=== PATIENT | male | born 1995 | race Caucasian/White ===

== ENCOUNTER 2017-10-14 20:33 | Emergency (ER) | payer BC ==
--- NOTE | 2017-10-14 20:37 | PDOC ---
Rapid Medical Evaluation Time Seen by Provider: 10/14/17 20:35 Medical Evaluation: Allergies Allergy/AdvReac Type Severity Reaction Status Date / Time No Known Allergies Allergy Verified 07/18/16 14:12 10/14/17 20:36 I have performed a brief in person evaluation of this patient. The patient presents with chief complaint of : abscess to right forearm Pertinent PE findings: swelling, redness to right inner forearm I have ordered the following: none The patient will proceed to the ER for further evaluation.
[2017-10-14 20:39] VITALS: BP 137/87; PULSE 79; TEMP 98; BMI 20.7
[2017-10-14] MEDS ORDERED: CLINDAMYCIN 600MG PREMIX IVPB 600 MG/50 ML BAG IVPB ONE ×2 (20:53→21:01)
--- NOTE | 2017-10-14 20:53 | PDOC ---
History of Present Illness - General Chief Complaint: Redness To Affected Area Stated Complaint: ABCESS/WOUND Time Seen by Provider: 10/14/17 20:35 History Source: Patient - History of Present Illness Initial Comments: 10/14/17 20:59 21-year-old male who is right hand dominant presents to the emergency department complaining of an abscess to his right anterior mid forearm. Patient states he was shaving his forearm 4 days ago and noticed that he was shaving against a green. 3 days ago he noticed some redness but did not form like a pimple which still prompted him to squeeze the bump. Patient noticed increased redness/swelling/and tenderness but denies lymphangitis today. Past History - Past Medical History Allergies/Adverse Reactions: Allergies Allergy/AdvReac Type Severity Reaction Status Date / Time No Known Allergies Allergy Verified 10/14/17 20:37 Home Medications: Ambulatory Orders Clindamycin [Cleocin -] 300 mg PO TID #21 capsule 10/14/17 Sulfamethoxazole/Trimethoprim [Bactrim Ds -] 1 tab PO BID #14 tablet 10/14/17 Asthma: Yes (childhood) COPD: No - Surgical History Appendectomy: Yes - Immunization History Immunization Up to Date: Yes - Suicide/Smoking/Psychosocial Hx Smoking History: Current some day smoker Have you smoked in the past 12 months: Yes Number of Cigarettes Smoked Daily: 2 Information on smoking cessation initiated: No Hx Alcohol Use: No Drug/Substance Use Hx: Yes (marijuana) Substance Use Type: Marijuana Review of Systems - Review of Systems Able to Perform ROS?: Yes Comments:: 10/14/17 20:57 CONSTITUTIONAL: Absent: fever, chills, diaphoresis, generalized weakness, malaise, loss of appetite CARDIOVASCULAR: Absent: chest pain, loss of consciousness, palpitations, irregular heart rate, peripheral edema RESPIRATORY: Absent: cough, shortness of breath, dyspnea with exertion, orthopnea, wheezing, stridor, hemoptysis GASTROINTESTINAL: Absent: abdominal pain, abdominal distension, nausea, vomiting, diarrhea, constipation, melena, hematochezia GENITOURINARY: Absent: dysuria, frequency, urgency, hesitancy, hematuria, flank pain, genital pain MUSCULOSKELETAL: Absent: myalgia, arthralgia, joint swelling SKIN: Absent: rash, itching, pallor Right ant mid forearm/ erythematous/ indurated abscess ~2cm Is the patient limited Amharic proficient: No *Physical Exam - Vital Signs Last Vital Signs Temp Pulse Resp BP Pulse Ox 98 F 79 18 137/87 99 10/14/17 20:37 10/14/17 20:37 10/14/17 20:37 10/14/17 20:37 10/14/17 20:37 - Physical Exam Comments: 10/14/17 20:57 GENERAL: Well developed, well nourished. Awake and alert. No acute distress. HEENT: Normocephalic, atraumatic. PERRLA, EOMI. No conjunctival pallor. Sclera are non- icteric. Moist mucous membranes. Oropharynx is clear. NECK: Supple. Full ROM. No JVD. Carotid pulses 2+ and symmetric, without bruits. No thyromegaly. No lymphadenopathy. CARDIOVASCULAR: Regular rate and rhythm. No murmurs, rubs, or gallops. Distal pulses are 2+ and symmetric. PULMONARY: No evidence of respiratory distress. Lungs clear to auscultation bilaterally. No wheezing, rales or rhonchi. MUSCULOSKELETAL Normal range of motion at all joints. No bony deformities or tenderness. No CVA tenderness. EXTREMITIES: No cyanosis. No clubbing. No edema. No calf tenderness. SKIN: Warm and dry. Normal capillary refill. No rashes. No jaundice. Right ant mid forearm 2cm indurated abscess Neg lymphangitis +erythematous Neg drainage *DC/Admit/Observation/Transfer Diagnosis at time of Disposition: Abscess of forearm, right - Discharge Dispostion Disposition: HOME Condition at time of disposition: Stable Admit: No - Prescriptions Prescriptions: Clindamycin [Cleocin -] 300 mg PO TID #21 capsule Sulfamethoxazole/Trimethoprim [Bactrim Ds -] 1 tab PO BID #14 tablet - Referrals Referrals: Brent Salgado MD [Staff Physician] - - Patient Instructions Printed Discharge Instructions: DI for Skin Abscess Additional Instructions: Warm compress Take the antibiotics as prescribed until complete: clindamycin and bactrim DS Return immediately if you notice increase redness/red streak Wound check in 2 days If the redness passes the marking I leora, you must return immediately - Post Discharge Activity
[2017-10-14] MEDS ORDERED: SULFAMETHOXAZOLE/TRIMETHOPRIM 800MG/160MG D.S. TABLET PO ONE (20:55)
[2017-10-14] MEDS ORDERED: SULFAMETHOXAZOLE/TRIMETHOPRIM 800MG/160MG D.S. TABLET ONE (20:59)
== END 2017-10-14 22:08 | disposition home or self-care (01) ==
LOC: JERFT 20:33
DX: L02.413 Cutaneous abscess of right upper limb (principal)
CPT/HCPCS: 99281-25

== ENCOUNTER 2017-10-16 12:41 | Emergency (ER) | payer BC ==
[2017-10-16 12:46] VITALS: BP 133/49; PULSE 95; TEMP 98.3; BMI 20.7
--- NOTE | 2017-10-16 13:38 | PDOC ---
Suture Removal/Wound Check HPI - History of Present Illness Chief Complaint: Revisit,Wound Recheck Stated Complaint: FOLLOW-UP/ ABSCESS Time Seen by Provider: 10/16/17 13:33 History Source: Yes: Patient Exam Limitations: Yes: No Limitations Treated at: [facility] Date of Last ED visit: 10/14/17 - Previous ED Treatment Type of procedure performed on last visit: Yes: Other ( STARTED ON ANTIBIOTIC) Tetanus Immunization: Yes: Up to Date Antibiotics Prescribed: Yes (CLEOCIN AND BACTRIM DS ) Past History - Past Medical History Allergies/Adverse Reactions: Allergies Allergy/AdvReac Type Severity Reaction Status Date / Time No Known Allergies Allergy Verified 10/16/17 12:46 Home Medications: Ambulatory Orders Clindamycin [Cleocin -] 300 mg PO TID #21 capsule 10/14/17 Sulfamethoxazole/Trimethoprim [Bactrim Ds -] 1 tab PO BID #14 tablet 10/14/17 Asthma: Yes (childhood) COPD: No DVT: No - Surgical History Appendectomy: Yes - Immunization History Immunization Up to Date: Yes - Suicide/Smoking/Psychosocial Hx Smoking History: Current some day smoker Have you smoked in the past 12 months: Yes Number of Cigarettes Smoked Daily: 4 Information on smoking cessation initiated: No Hx Alcohol Use: Yes (SOCIAL) Drug/Substance Use Hx: No Substance Use Type: Marijuana Suture Removal/Wound Check PE - Physical Exam Laceration/Wound Check Symptoms: reports: Other Comment (RT MEDIAL FOREARM AREA OF 3 CM X 4CM) Current Severity Level: Mild Maximum Severity Level: Moderate Location of Laceration/Wound: right: Forearm (RT. MEDIAL FOREARM ) Comments: 10/16/17 13:55 PT. HAS BEEN APPLYING WARM SOAKS TO RT. MEDIAL FOREARM, PT. REPORTS AREA HAS BEEN DRAINING SINCE YESTERDAY Pain radiates to: right: Extremity(ies) (RT. MEDIAL FOREARM) *Review of Systems - Review of Systems Able to Perform ROS?: Yes Constitutional: No: Symptoms Reported HEENTM: No: Symptoms Reported Respiratory: No: Symptoms reported Cardiac (ROS): No: Symptoms Reported ABD/GI: No: Symptoms Reported : No: Flank Pain Musculoskeletal: No: Symptoms Reported Integumentary: Yes: Erythema (RAISED AREA RT. MEDIAL FOREARM WITH SEROSANQUINOUS DRAINAGE) Neurological: No: Symptoms reported Medical Decision Making - Medical Decision Making 10/16/17 13:56 ABSCESS RT. MEDIAL FOREARM DRAINING PLAN: CONTINUE CURRENT MEDICATIONS CONTINUE TO APPLY WARM SOAKS *DC/Admit/Observation/Transfer Diagnosis at time of Disposition: Abscess of forearm, right - Discharge Dispostion Disposition: HOME Condition at time of disposition: Stable - Referrals - Patient Instructions Additional Instructions: Continue to apply warm soaks to right forearm every couple of hours to help area drain Return to emergency room if any increased redness of the wound or any fever or any other symptoms develop Keep area covered when out of house mate made let air out at night when sleeping Continue taking antibiotics as previously ordered You may take ibuprofen as needed as directed by gas station supervisor do not apply icy hot or any creams to wound PATIENT VOICED UNDERSTANDING OF DISCHARGE INSTRUCTIONS AND ALL QUESTIONS WERE ANSWERED - Post Discharge Activity
== END 2017-10-16 14:09 | disposition home or self-care (01) ==
LOC: JERFT 12:41
DX: L02.413 Cutaneous abscess of right upper limb (principal)
CPT/HCPCS: 99281-25

== ENCOUNTER 2021-05-12 11:07 | Emergency (ER) | payer BC ==
[2021-05-12 11:21] VITALS: BP 107/68; PULSE 77; TEMP 97.8
[2021-05-12] MEDS ORDERED: IBUPROFEN 600 MG TABLET (FP) PO ONE ×2 (11:31→11:50)
== END 2021-05-12 12:49 | disposition home or self-care (01) ==
LOC: JERFT 11:07
DX: S83.92XA Sprain of unspecified site of left knee, initial encounter (principal)
CPT/HCPCS: 73562-TC-LT-FY; 99283-25

== ENCOUNTER 2022-04-29 00:36 | Emergency (ER) | payer BC ==
[2022-04-29 01:34] VITALS: BP 108/73; PULSE 83; TEMP 99; BMI 20.7
[2022-04-29] MEDS ORDERED: LIDOCAINE 5% TOPICAL PATCH TP ONE ×2 (01:46→02:35)
[2022-04-29] MEDS ORDERED: LIDOCAINE 5% TOPICAL PATCH ONE ×2 (01:48→02:39)
[2022-04-29] MEDS ORDERED: ONDANSETRON *ODT* 4 MG TABLET SL ONE (03:16)
[2022-04-29] MEDS ORDERED: ONDANSETRON *ODT* 4 MG TABLET ONE (03:19)
[2022-04-29] MEDS ORDERED: LIDOCAINE PATCH REMOVAL MC SCH ×2 (22:00)
== END 2022-04-29 03:36 | disposition home or self-care (01) ==
LOC: JER 00:36
DX: R07.89 Other chest pain (principal); V28.0XXA Motorcycle driver injured in noncollision transport accident in nontraffic accident, initial encounter
CPT/HCPCS: 71046-TC-FY; 71101-TC-LT-FY; 99284-25; Q0162

== ENCOUNTER 2022-04-30 04:15 | Emergency (ER) | payer BC ==
[2022-04-30 04:39] VITALS: BP 136/79; PULSE 82; TEMP 98.3; BMI 21.6
[2022-04-30] MEDS ORDERED: KETOROLAC TROMETHAMINE 30 MG/1 ML VIAL IM ONE (04:44)
[2022-04-30] MEDS ORDERED: LIDOCAINE 5% TOPICAL PATCH TP ONE (04:44)
[2022-04-30] MEDS ORDERED: KETOROLAC TROMETHAMINE 30 MG/1 ML VIAL ONE (04:54)
[2022-04-30] MEDS ORDERED: LIDOCAINE 5% TOPICAL PATCH ONE (04:54)
[2022-04-30] MEDS ORDERED: diazePAM 5 MG TABLET PO ONE (04:55)
[2022-04-30] MEDS ORDERED: diazePAM 5 MG TABLET ONE (04:57)
[2022-04-30] MEDS ORDERED: LIDOCAINE PATCH REMOVAL MC SCH (22:00)
== END 2022-04-30 06:47 | disposition home or self-care (01) ==
LOC: JER 04:15
PROC: 3E023GC Introduction of Other Therapeutic Substance into Muscle, Percutaneous Approach (ICD-10-PCS; principal; 2022-04-30)
DX: R07.89 Other chest pain (principal); V28.0XXA Motorcycle driver injured in noncollision transport accident in nontraffic accident, initial encounter
CPT/HCPCS: 71046-TC-FY; 93005; 93010; 99284-25

== ENCOUNTER 2022-05-01 15:26 | Emergency (ER) | payer BC ==
[2022-05-01 16:01] VITALS: BP 124/73; PULSE 60; TEMP 98.3; BMI 21.6
== END 2022-05-01 19:06 | disposition home or self-care (01) ==
LOC: JERFT 15:26 → JER 15:26 → JERFT 19:06
DX: S20.212A Contusion of left front wall of thorax, initial encounter (principal); W10.9XXA Fall (on) (from) unspecified stairs and steps, initial encounter
CPT/HCPCS: 99281-25

== ENCOUNTER 2024-03-22 21:30 | Emergency (ER) | payer BC ==
[2024-03-22 21:39] VITALS: BP 116/69; PULSE 98; RESP 18; TEMP 101.1; BMI 21.1
[2024-03-22] MEDS ORDERED: ONDANSETRON 4 MG/2 ML VIAL ONE (22:40)
[2024-03-22] MEDS ORDERED: ACETAMINOPHEN INJECTION 100 ML IVPB ONE (22:40)
[2024-03-22] MEDS: SODIUM CHLORIDE 0.9% 500 ML INFUS.BAG IV ONE (22:57)
[2024-03-22] MEDS: ACETAMINOPHEN 1000 MG/100 ML BAG IVPB ONE (22:57)
[2024-03-22] MEDS: ONDANSETRON 4 MG/2 ML VIAL IVPUSH ONE (22:57)
[2024-03-22 23:03] LABS: BASO % 0.6 % (0-2.0); EOS % 0.1 % (0-4.5); HEMATOCRIT 39.1 % (35.4-49); HEMOGLOBIN 13.1 GM/dL (11.7-16.9); LYMPH % 5.1 % (8-40); MCH 29.4 pg (25.7-33.7); MCHC 33.5 g/dl (32.0-35.9); MEAN CELL VOLUME 87.7 fl (80-96); MEAN PLT VOLUME 7.8 fl (7.5-11.1); NEUT % 85.2 % (42.8-82.8); PLATELET COUNT 313 10^3/uL (134-434); RBC 4.45 M/mm3 (4.00-5.60); RDW 13.7 % (11.9-15.9); WHITE BLOOD COUNT 7.6 K/mm3 (4.0-10.0)
[2024-03-22] MEDS ORDERED: FAMOTIDINE 10 MG/ML VIAL IVPB ONE (23:05)
[2024-03-22 23:28] LABS: POTASSIUM 4.2 mmol/L (3.5-5.1)
[2024-03-22 23:32] LABS: CALCIUM 9.1 mg/dL (8.5-10.1)
[2024-03-22 23:33] LABS: ALBUMIN 3.8 g/dl (3.4-5.0); BLOOD UREA NITROGEN 15.6 mg/dL (7-18)
[2024-03-22] MEDS: FAMOTIDINE 20 MG/50 ML IVPB 20 MG/50 ML MG IVPB ONE (23:34)
[2024-03-22 23:36] LABS: CREATININE 1.1 mg/dL (0.55-1.3); PHOSPHOROUS 2.9 mg/dL (2.5-4.9)
[2024-03-22 23:37] LABS: BILIRUBIN,TOTAL 0.3 mg/dL (0.2-1)
== END 2024-03-23 00:18 | disposition home or self-care (01) ==
LOC: JER 21:30
PROC: 3E033GC Introduction of Other Therapeutic Substance into Peripheral Vein, Percutaneous Approach (ICD-10-PCS; principal; 2024-03-22)
PROC: 3E030NZ Introduction of Analgesics, Hypnotics, Sedatives into Peripheral Vein, Open Approach (ICD-10-PCS; 2024-03-22)
PROC: 3E030GC Introduction of Other Therapeutic Substance into Peripheral Vein, Open Approach (ICD-10-PCS; 2024-03-22)
DX: J10.1 Influenza due to other identified influenza virus with other respiratory manifestations (principal); R50.9 Fever, unspecified; R53.81 Other malaise; M79.10 Myalgia, unspecified site; R05.9 Cough, unspecified; R11.2 Nausea with vomiting, unspecified; R19.7 Diarrhea, unspecified; R07.89 Other chest pain; Z20.822 Contact with and (suspected) exposure to COVID-19
CPT/HCPCS: 0241U-QW; 36415; 71045-TC-FY; 80053; 83735; 84100; 85025; 93005; 93010; 99285-25; J0131

== ENCOUNTER 2024-03-28 13:47 | Emergency (ER) | payer BC ==
[2024-03-28 13:54] VITALS: BP 107/69; PULSE 97; RESP 18; TEMP 97.6; BMI 20.6
[2024-03-28] MEDS: SODIUM CHLORIDE FOR INHALATION 3 ML VIAL.NEB IH ONE (14:46)
[2024-03-28] MEDS ORDERED: ALBUTEROL SO4 0.083% IH SOL 2.5 MG/3 ML VIAL.NEB. NEB ONE (14:51)
[2024-03-28] MEDS ORDERED: ACETAMINOPHEN 325 MG TABLET (FP) ONE (14:51)
[2024-03-28] MEDS: ALBUTEROL SO4 0.083% IH SOL 2.5 MG/3 ML VIAL.NEB. NEB SCH (14:59)
[2024-03-28] MEDS: ACETAMINOPHEN 500 MG TABLET (FP) PO ONE (14:59)
[2024-03-28] MEDS ORDERED: DEXAMETHASONE SOD PHOSPHATE 10 MG/1 ML VIAL ONE ×2 (15:19→15:22)
[2024-03-28] MEDS: DEXAMETHASONE SOD PHOSPHATE 10 MG/1 ML VIAL PO ONE (15:32)
[2024-03-28] MEDS: ALBUTEROL SO4 2.5/IPRATROPIUM 0.5 INH SOL 3 ML VIAL.NEB. NEB SCH (15:33)
== END 2024-03-28 16:28 | disposition home or self-care (01) ==
LOC: JER 13:47
PROC: 3E0F7GC Introduction of Other Therapeutic Substance into Respiratory Tract, Via Natural or Artificial Opening (ICD-10-PCS; principal; 2024-03-28)
PROC: 3E0F7GC Introduction of Other Therapeutic Substance into Respiratory Tract, Via Natural or Artificial Opening (ICD-10-PCS; 2024-03-28)
DX: R07.89 Other chest pain (principal); R42 Dizziness and giddiness; J45.901 Unspecified asthma with (acute) exacerbation
CPT/HCPCS: 36415; 71046-TC-FY; 84484; 93005; 93010; 99285-25; J1100

== ENCOUNTER 2024-04-05 08:55 | Emergency (ER) | payer BC ==
[2024-04-05 09:04] VITALS: BP 107/65; PULSE 88; RESP 18; TEMP 98.7; BMI 21.1
== END 2024-04-05 10:01 | disposition home or self-care (01) ==
LOC: JER 08:55
PROC: 0HQFXZZ Repair Right Hand Skin, External Approach (ICD-10-PCS; principal; 2024-04-05)
DX: S61.411A Laceration without foreign body of right hand, initial encounter (principal); W26.8XXA Contact with other sharp object(s), not elsewhere classified, initial encounter
CPT/HCPCS: 99283-25

== ENCOUNTER 2024-04-14 21:24 | Emergency (ER) | payer BC ==
[2024-04-14 21:36] VITALS: BP 109/52; RESP 16; TEMP 98; BMI 21.1
[2024-04-14] MEDS ORDERED: CYCLOBENZAPRINE HCL 10 MG TABLET (FP) ONE (22:29)
[2024-04-14] MEDS ORDERED: KETOROLAC TROMETHAMINE 30 MG/1 ML VIAL ONE (22:29)
[2024-04-14] MEDS ORDERED: LIDOCAINE 4% PATCH TP ONE (22:29)
[2024-04-14] MEDS: LIDOCAINE 4% PATCH TP ONE (22:40)
[2024-04-14] MEDS: LIDOCAINE PATCH REMOVAL MC SCH (22:40)
[2024-04-14] MEDS: KETOROLAC TROMETHAMINE 30 MG/1 ML VIAL IM ONE (22:41)
[2024-04-14] MEDS: CYCLOBENZAPRINE HCL 10 MG TABLET (FP) PO ONE (22:41)
[2024-04-14 23:40] VITALS: PULSE 62
== END 2024-04-14 23:56 | disposition home or self-care (01) ==
LOC: JER 21:24 → JERFT 21:24
PROC: 3E0233Z Introduction of Anti-inflammatory into Muscle, Percutaneous Approach (ICD-10-PCS; principal; 2024-04-14)
DX: S39.012A Strain of muscle, fascia and tendon of lower back, initial encounter (principal); X50.0XXA Overexertion from strenuous movement or load, initial encounter
CPT/HCPCS: 99284-25

== ENCOUNTER 2024-08-16 03:57 | Emergency (ER) | payer BC ==
[2024-08-16 04:06] VITALS: BP 113/69; PULSE 63; RESP 18; TEMP 98; BMI 19.6
[2024-08-16] MEDS ORDERED: KETOROLAC TROMETHAMINE 30 MG/1 ML VIAL ONE (04:43)
[2024-08-16] MEDS ORDERED: LIDOCAINE 4% PATCH TP ONE (04:43)
[2024-08-16] MEDS: KETOROLAC TROMETHAMINE 30 MG/1 ML VIAL IM ONE (04:45)
[2024-08-16] MEDS: LIDOCAINE 5% TOPICAL PATCH TP ONE (04:45)
[2024-08-16] MEDS ORDERED: LIDOCAINE PATCH REMOVAL MC SCH (22:00)
== END 2024-08-16 05:20 | disposition home or self-care (01) ==
LOC: JER 03:57
PROC: 3E0233Z Introduction of Anti-inflammatory into Muscle, Percutaneous Approach (ICD-10-PCS; principal; 2024-08-16)
DX: M54.2 Cervicalgia (principal); M25.511 Pain in right shoulder
CPT/HCPCS: 99284-25